=== PATIENT | male | born 1960 | race Caucasian/White ===

== ENCOUNTER → 2016-08-09 | Day surgery (SDC) | payer BC ==
[~2016-08-09] VITALS: Ht 200.7 cm; Wt 161.7 kg
--- NOTE | ~2016-08-09 | OR ---
PATIENT'S NAME: [facility] AGE: 55 Y [address] ROOM: [place] [address] LOCATION: [facility] [place] ADMIT DATE: 08/09/2016 OR/Procedure Report DISCHARGE DATE: FAMILY PHYSICIAN: PHYSICIAN, NO ATTENDING PHYSICIAN: Marcie Rosenbaum SURGEON: Marcie Rosenbaum MD GASATERIA ATTENDANT: DATE OF PROCEDURE: 08/09/2016 PREOPERATIVE DIAGNOSIS: Voiding symptoms, possible urethral stricture. POSTOPERATIVE DIAGNOSIS: Benign prostatic hyperplasia. OPERATION: Cystoscopy. DESCRIPTION OF PROCEDURE: After adequate anesthesia, he was placed in a dorsal lithotomy position and prepped and draped. A cystoscope was passed. Anterior urethra was normal. There was no stricture present. The prostatic fossa was normal in length, but he did have median lobe and some lateral lobe enlargement. Examination of the bladder revealed some mild trabeculation. Trigone was normal. There were no tumors or stones in the bladder. He was then accompanied to the recovery area. MARCIE ROSENBAUM MD EKL/modl /[id number] d: 08/09/16 0715 t: 08/10/16 0459, OPERATIVE SUMMARY
--- NOTE | ~2016-08-09 | HP ---
PATIENT'S NAME: [facility] AGE: 55 Y [address] ROOM: [place] [address] [place] [facility] [place]: 08/05/2016 History & Physical DISCHARGE DATE: FAMILY PHYSICIAN: PHYSICIAN, NO ATTENDING PHYSICIAN: Marcie Rosenbaum DATE OF SERVICE: HISTORY OF PRESENT ILLNESS: A 55-year-old male, who has had a gradual onset of BPH with slowing of his stream, hesitancy, and a very small caliber stream. He states that the size of his urinary stream is very small consistent with a stricture. In the past, he has been on Flomax 0.4 mg every day for the past 3 years and that has improved his stream somewhat. He was then started on finasteride. Presently he voids every 2-3 hours during the daytime. Nocturia x1. He has no other history of urinary tract disease or infections. He has a family history of urological problems with his father having markedly enlarged prostate and recently had prostatic surgery and no history of cancer of the prostate. PAST MEDICAL HISTORY: Illnesses none. MEDICATIONS: None. PAST SURGICAL HISTORY: Operations: Inguinal herniorrhaphy and knee arthroscopy. ALLERGIES: NONE. PHYSICAL EXAMINATION: GENERAL: Well-developed, well-nourished male. VITAL SIGNS: Blood pressure 132/82. CHEST: Clear. HEART: Normal sinus rhythm. ABDOMEN: Soft with no palpable masses. : Normal penis. Testicles are normal. Prostate is slightly enlarged, smooth, and benign. RECTAL: Negative. PATIENT'S NAME: [facility] AGE: 55 Y [address] ROOM: [place] [address] [place] [facility] [place]: 08/05/2016 History & Physical DISCHARGE DATE: FAMILY PHYSICIAN: PHYSICIAN, NO ATTENDING PHYSICIAN: Marcie Rosenbaum IMPRESSION: Voiding symptoms, possible stricture. PLAN: Cystoscopy. MARCIE ROSENBAUM MD EKL/modl /[id number] D: [id number] HISTORY & PHYSICAL
[2016-08-09 06:12] LABS: BASOPHIL % 0.4 %; EOSINOPHIL # 0.2 K/uL (0.0-0.5); EOSINOPHIL % 2.3 %; HEMATOCRIT 44.2 % (37.0-53.0); HEMOGLOBIN 14.5 g/dL (12.0-17.0); IMMATURE GRANULOCYTE % 0.6 %; LYMPHOCYTE # 3.6 K/uL (0.8-4.0); LYMPHOCYTE % 50.8 %; MCHC 32.8 gm/dL (32.0-36.5); MCV 91.5 fl (83.0-98.0); MONOCYTE # 0.5 K/uL (0.0-1.0); MONOCYTE % 6.9 %; MPV 9.8 fl (9.4-12.4); NEUTROPHIL # (ANC) 2.8 K/uL (1.4-9.0); NRBC % 0 /100WBC (0-0.00); PLATELET COUNT 206 K/uL (150-450); RBC 4.83 M/uL (4.00-6.00); RDW-CV 13.1 % (11.9-14.6); WBC 7.1 K/uL (4.0-11.0)
[2016-08-09 06:37] LABS: ALBUMIN 3.3 gm/dL (3.5-5.0); ALK PHOS 70 IU/L (33-138); ALT 28 IU/L (12-78); ANION GAP 11.9 (10.0-19.0); AST 22 IU/L (10-40); BLOOD UREA NITROGEN 10 mg/dL (6-24); CALCIUM 8.3 mg/dL (8.5-10.5); CHLORIDE 106 mMol/L (96-110); CO2 26 mMol/L (22-32); ESTIMATED GFR (MDRD EQUATION) > 60; POTASSIUM 3.9 mMol/L (3.7-5.1); SODIUM 140 mMol/L (135-145); TOTAL BILIRUBIN 0.7 mg/dL (0.0-1.5); TOTAL PROTEIN 6.8 g/dL (6.0-8.4)
== END | disposition disaster alternative care site (69) ==
LOC: GSDC 08-05 11:00 → GPOC 08-05 11:00 → GSDC 05:28
PROVIDERS: Urology
PROC: 0TJB8ZZ Inspection of Bladder, Via Natural or Artificial Opening Endoscopic (ICD-10-PCS; principal; 2016-08-09)
DX: N40.1 Benign prostatic hyperplasia with lower urinary tract symptoms (principal); R39.12 Poor urinary stream; R39.11 Hesitancy of micturition; Z98.890 Other specified postprocedural states
CPT/HCPCS: J2001; J7120